=== PATIENT | female | born 1975 | race Caucasian/White ===

== ENCOUNTER → 2019-11-22 | Outpatient (CLI) | payer BC ==
[~2019-11-22] MED LIST: AZIT250 PO; CALCIT950; CEPH500 PO; Chewable Multi1 EAC1; HYDACE5 PO; METF500 PO; OMEP40CA12 PO; RXHYDACE PO
[2019-11-22 10:16] LABS: Source, Urine Clean Catch
[2019-11-22 11:12] LABS: Bilirubin, Urine Neg (Neg); Blood, Urine 4+ (Neg); Glucose Qualitative, Urine Neg (Neg); Ketones, Urine Neg (Neg); Leukocyte Esterase, Urine 3+ (Neg); Nitrite, Urine Pos (Neg); Protein, Urine 2+ (Neg); Urobilinogen, Urine 1+ (Normal)
[2019-11-22 11:29] LABS: Appearance, Urine Hazy (Clear); Color, Urine Yellow (P-Yellow)
[2019-11-22 11:30] LABS: White Blood Cells, Urine 25-50 /hpf (0-5)
[2019-11-22 11:31] LABS: Amorphous Mod (0-Heavy); Bacteria Many /hpf; Squamous Epithelial Cells Few /hpf (Few)
[2019-11-22 11:32] LABS: Red Blood Cells, Urine 25-50 /hpf (0-2)
== END | disposition home or self-care (01) ==
LOC: LAB 10:14 → LAB SHORT 10:14
PROVIDERS: Nurse Practitioner Obstetrics & Gynecology
DX: R30.0 Dysuria (principal); R35.0 Frequency of micturition
CPT/HCPCS: 81001; 87077; 87086; 87186